=== PATIENT | female | born 1960 | race Asian ===

== ENCOUNTER 2018-11-06 17:51 | Emergency (ER) | payer MEDICAID ==
[~2018-11-06] VITALS: Ht 165.1 cm; Wt 71.2 kg
[2018-11-06 18:00] VITALS: BP 119/65
--- NOTE | 2018-11-06 18:02 | NUR ---
PT AMBULATED TO LOBBY AT THIS TIME, VSS.
--- NOTE | 2018-11-06 18:13 | NUR ---
BIB SELF. AAO X4 C/O MULTIPLE MOSQUITO BITES ON BLE SINCE LAST NIGHT. MULTIPLE RAISED ERYTHEMA TO BILATERAL LEGS. PT STATES ITCHINESS TO THE SITE. PT DENIES FEVER, N/V, SOB, PAIN. ER TO EVALUATE PT.
--- NOTE | 2018-11-06 18:13 | NUR ---
PATIENT AMBULATED TO ER BED 6.
--- NOTE | 2018-11-06 19:17 | NUR ---
Pt report given to RAMANA ESQUEDA. Transfer of care at this time.
--- NOTE | 2018-11-06 19:18 | NUR ---
REPORT RECEIVED FROM RAMANA JARVIS. TRANSFER OF CARE AT THIS TIME.
--- NOTE | 2018-11-06 20:29 | NUR ---
[facility] INTERPRETATION UTILIZED BY DR. VAZ FOR MANDARIN SPEAKING [employer] ID # [id number]
--- NOTE | 2018-11-06 20:32 | NUR ---
DR. VAZ EVALUATING AT BEDSIDE.
[2018-11-06 20:50] VITALS: BP 127/56
--- NOTE | 2018-11-06 20:50 | NUR ---
Patient discharged with v/s stable. Written and verbal after care instructions given and explained. Patient verbalized understanding. Ambulatory with steady gait. All questions addressed prior to discharge. Advised to follow up with PMD.
== END 2018-11-06 20:50 | disposition home or self-care (01) ==
LOC: MED 17:51
DX: S80.862A Insect bite (nonvenomous), left lower leg, initial encounter (principal); S80.861A Insect bite (nonvenomous), right lower leg, initial encounter; W57.XXXA Bitten or stung by nonvenomous insect and other nonvenomous arthropods, initial encounter; Y93.01 Activity, walking, marching and hiking; Y92.89 Other specified places as the place of occurrence of the external cause; Y99.8 Other external cause status
CPT/HCPCS: 99283